=== PATIENT | male | born 1955 | race Caucasian/White ===

== ENCOUNTER 2019-07-12 17:16 | Emergency (ER) | payer BC ==
[2019-07-12 17:57] VITALS: BP 110/63
--- NOTE | 2019-07-12 18:13 | UC ---
Hand/Wrist HPI - HPI Summary HPI Summary: 64-year-old male comes in with a chief complaint of a right hand injury. This started 3 days ago he tripped and fell while hiking. The pain is the worst the right index finger. He has a difficult time moving the finger. He has swelling of the hand. No decreased sensation no complaint of any wrist pain. No skin break. - History Of Current Complaint Chief Complaint: UCUpperExtremity Stated Complaint: HAND INJURY Pain Intensity: 3 - Allergies/Home Medications Allergies/Adverse Reactions: Allergies Allergy/AdvReac Type Severity Reaction Status Date / Time No Known Allergies Allergy Verified 07/12/19 17:57 Home Medications: Home Medications Cyanocobalamin TAB* [Vitamin B12 TAB*] 1,000 mcg PO DAILY 07/12/19 [History Confirmed 07/12/19] PMH/Surg Hx/FS Hx/Imm Hx Previously Healthy: Yes - Surgical History Surgical History: Yes Surgery Procedure, Year, and Place: appendectomy. hernia repair - Family History Known Family History: Positive: Non-Contributory - Social History Alcohol Use: Occasionally Substance Use Type: None Smoking Status (MU): Never Smoked Tobacco Review of Systems All Other Systems Reviewed And Are Negative: Yes Constitutional: Positive: Negative Skin: Positive: Other - SEE HPI ENT: Positive: Negative Respiratory: Positive: Negative Cardiovascular: Positive: Negative Gastrointestinal: Positive: Negative Motor: Positive: Other - SEE HPI Neurovascular: Positive: Negative Musculoskeletal: Positive: Other: - SEE HPI Neurological: Positive: Negative Psychological: Positive: Negative Is Patient Immunocompromised?: No Physical Exam Triage Information Reviewed: Yes Appearance: Well-Appearing, No Pain Distress, Well-Nourished Vital Signs: Initial Vital Signs Temp 97.4 F 07/12/19 17:52 Pulse 74 07/12/19 17:52 Resp 16 07/12/19 17:52 BP 110/63 07/12/19 17:52 Pulse Ox 99 07/12/19 17:52 Vital Signs Reviewed: Yes Eye Exam: Normal Eyes: Positive: Conjunctiva Clear Neck: Positive: Supple Respiratory: Positive: No respiratory distress Musculoskeletal: Positive: Other: - The right hand is swollen. The area it's most tender is at the base of the right index finger. He does have difficulty moving that finger. Normal sensation. Normal capillary refill. No skin break. Neurological: Positive: Alert Psychological: Positive: Age Appropriate Behavior Skin: Positive: Other - Swelling and ecchymosis of the right hand centered at the base of the right index finger Hand/Wrist Course/Dx - Course Course Of Treatment: I discussed the x-rays with the patient. I see a fracture at the base of the index finger and the proximal phalanx at the MCP joint. Radiologist reading is pending. Finger was splinted by nursing and clinic patient neurovascular intact after splinting. Plan is to follow-up with orthopedic hands. - Differential Dx/Diagnosis Provider Diagnosis: Fracture of phalanx of right index finger Discharge - Sign-Out/Discharge Documenting (check all that apply): Patient Departure All imaging exams completed and their final reports reviewed: No - Discharge Plan Condition: Stable Disposition: HOME Patient Education Materials: Finger Fracture (ED) Referrals: Beatriz Suresh MD [Primary Care Provider] - Fidencio Mtz MD [Medical Doctor] - Additional Instructions: FOLLOW UP WITH ORTHOPEDICS, DR HARDIN. CALL TOMORROW TO ARRANGE FOLLOW UP. GET RECHECKED SOONER IF YOUR CONDITION WORSENS OR ANY QUESTIONS OR CONCERNS. - Billing Disposition and Condition Condition: STABLE Disposition: Home
--- NOTE | 2019-07-12 21:25 | UC ---
- Progress Note Progress Note: Patient Name: YUNIEL BLACKWOOD Medical Record#: [id number] Ordering Physician: Toñito Hawthorne MD Acct.#: [id number] : 1955 Age: 64 Sex: M Location: [facility] Exam Date: 07/12/191736 ADM Status: [facility] ER Order Information: HAND - RIGHT MINIMUM 3 VIEWS Accession Number: [id number] CPT: 55578 INDICATION: RIGHT second digit metacarpal phalangeal joint region pain following injury one week ago. COMPARISON: No relevant prior exams available on the [facility] for comparison. TECHNIQUE: AP, lateral, and oblique views RIGHT hand. REPORT: Minimally displaced intra-articular fracture at the ulnar base of the second proximal phalanx with overlying soft tissue swelling. Nonacute appearing smooth margined ossification along the ulnar margin of the head of the third metacarpal likely reflecting sequela of more remote injury. Normal articular alignment. IMPRESSION: #. Intra-articular fracture base of second proximal phalanx. <Electronically signed by Todd Fuentes MD in [place]> 07/12/19 1831 Course/Dx - Diagnoses Provider Diagnoses: Fracture of phalanx of right index finger Discharge - Sign-Out/Discharge Documenting (check all that apply): Patient Departure All imaging exams completed and their final reports reviewed: Yes - Discharge Plan Condition: Stable Disposition: HOME Patient Education Materials: Finger Fracture (ED) Referrals: Fidencio Mtz MD [Medical Doctor] - Beatriz Suresh MD [Primary Care Provider] - Additional Instructions: FOLLOW UP WITH ORTHOPEDICS, DR HARDIN. CALL TOMORROW TO ARRANGE FOLLOW UP. GET RECHECKED SOONER IF YOUR CONDITION WORSENS OR ANY QUESTIONS OR CONCERNS. - Billing Disposition and Condition Condition: STABLE Disposition: Home
== END 2019-07-12 18:25 | disposition home or self-care (01) ==
LOC: UCEAST 17:16
DX: S62.610A Displaced fracture of proximal phalanx of right index finger, initial encounter for closed fracture (principal); W19.XXXA Unspecified fall, initial encounter; Y93.01 Activity, walking, marching and hiking; Y92.828 Other wilderness area as the place of occurrence of the external cause; Y99.8 Other external cause status
CPT/HCPCS: 99212; G0463

== ENCOUNTER 2021-06-10 18:51 | Observation (INO) ==
[2021-06-10] MEDS ORDERED: NS 0.9% 1000 ml BAG 1,000 ML IV ONE (19:12)
[2021-06-10 20:03] LABS: ABS Basophils 0.1 10^3/ul (0-0.2); ABS Eosinophils 0.4 10^3/ul (0-0.6); ABS Lymphocytes 1.2 10^3/ul (1.0-4.8); ABS Monocytes 0.5 10^3/ul (0-0.8); ABS Neutrophils 4.1 10^3/ul (1.5-7.7); Eosinophil % 5.8 %; Hematocrit 40 % (42-52); Hemoglobin 13.9 g/dL (14.0-18.0); Lymphocyte % 19.7 %; Mean Corpuscular HGB Conc 35 g/dL (31-36); Mean Corpuscular Hemoglobin 33 pg (27-31); Mean Corpuscular Volume 94 fL (80-94); Mean Platelet Volume 8.3 fL (7.4-10.4); Platelet Count 234 10^3/uL (150-450); Red Blood Count 4.26 10^6 /uL (4.18-5.48); Red Cell Distribution Width 13 % (10-15); White Blood Count 6.3 10^3/uL (3.5-10.8)
[2021-06-10 20:11] LABS: Activated Partial Thrombo Time 29.4 seconds (26.0-38.0); INR 1.06 (0.86-1.15)
[2021-06-10 20:17] LABS: ALT 14 U/L (7-52); AST 20 U/L (13-39); Albumin 4.2 g/dL (3.2-5.2); Albumin/Globulin Ratio 1.8 (1-3); Alkaline Phosphatase 47 U/L (35-149); Anion Gap 6 mmol/L (2-11); Blood Urea Nitrogen 24 mg/dL (6-24); CO2 Carbon Dioxide 27 mmol/L (22-32); Calcium 9.4 mg/dL (8.6-10.3); Chloride 106 mmol/L (101-111); Cholesterol 170 mg/dL; EGFR African American 98.4 (>60); EGFR Non-African American 81.3 (>60); Globulin 2.3 g/dL (2-4); Glucose 99 mg/dL (70-100); HDL Cholesterol 57.5 mg/dL; LDL Cholesterol 95 mg/dL; Potassium 3.5 mmol/L (3.5-5.0); Sodium 139 mmol/L (135-145); Total Protein 6.5 g/dL (6.4-8.9); Triglycerides 87 mg/dL
[2021-06-10 20:21] LABS: Troponin I 0.04 ng/mL (<0.03)
[2021-06-11 00:45] LABS: Urine Appearance Clear; Urine Bilirubin Negative (Negative); Urine Blood Negative (Negative); Urine Color Yellow; Urine Glucose Negative (Negative); Urine Ketones Negative (Negative); Urine Nitrite Negative (Negative); Urine Protein Negative (Negative); Urine Specific Gravity 1.023 (1.002-1.030); Urine Urobilinogen Negative (Negative)
[2021-06-11 02:45] LABS: Troponin I 0.03 ng/mL (<0.03)
[2021-06-11 06:23] LABS: ABS Basophils 0.1 10^3/ul (0-0.2); ABS Eosinophils 0.3 10^3/ul (0-0.6); ABS Lymphocytes 1.2 10^3/ul (1.0-4.8); ABS Monocytes 0.5 10^3/ul (0-0.8); ABS Neutrophils 3.4 10^3/ul (1.5-7.7); Eosinophil % 6.2 %; Hematocrit 39 % (42-52); Hemoglobin 13.7 g/dL (14.0-18.0); Lymphocyte % 22.4 %; Mean Corpuscular HGB Conc 36 g/dL (31-36); Mean Corpuscular Hemoglobin 33 pg (27-31); Mean Corpuscular Volume 94 fL (80-94); Mean Platelet Volume 8.1 fL (7.4-10.4); Platelet Count 210 10^3/uL (150-450); Red Blood Count 4.11 10^6 /uL (4.18-5.48); Red Cell Distribution Width 13 % (10-15); White Blood Count 5.5 10^3/uL (3.5-10.8)
[2021-06-11 06:42] LABS: Calcium 8.9 mg/dL (8.6-10.3); EGFR African American 112.2 (>60); EGFR Non-African American 92.7 (>60); Potassium 3.5 mmol/L (3.5-5.0)
[2021-06-11 15:50] VITALS: BP 100/64
== END 2021-06-11 19:15 | disposition home or self-care (01) ==
LOC: MEDTELE 18:51 → ED 18:51 → MEDTELE 06-11 00:04
PROVIDERS: ADMIT Internal Medicine; ATTEND Internal Medicine